=== PATIENT | female | born 1980 | race Caucasian/White ===

== ENCOUNTER → 2018-06-30 | Outpatient (CLI) | payer OTHER ==
[~2018-06-30] MED LIST: Colace PO; Dilaudid PO; Feosol PO; INDERAL10 MG PO; Motrin PO; Paxil PO; PriLOSEC PO; Proventil,Ventolin H IH; ZOFRAN4 MG PO
== END | disposition home or self-care (01) ==
LOC: RES 08:57
DX: Z02.71 Encounter for disability determination (principal)
CPT/HCPCS: 71046

== ENCOUNTER → 2018-07-04 | Outpatient (CLI) | payer OTHER | END | disposition home or self-care (01) | LOC: RES 09:33 | DX: Z02.71 Encounter for disability determination (principal) | CPT/HCPCS: 94060; 94729; 94760 ==